=== PATIENT | female | born 1985 | race Caucasian/White ===

== ENCOUNTER 2020-12-08 12:54 | Outpatient (REF) | payer BC, SELFPAY ==
--- NOTE | ~2020-12-08 | XR_ITS ---
EXAMINATION: XR ELBOW, RIGHT CLINICAL INFORMATION: Pain COMPARISON: None TECHNIQUE: AP, lateral, and oblique views of the right elbow. FINDINGS: No fracture or joint effusion. Alignment is anatomic. Joint spaces are maintained. No abnormal soft tissue calcification. XR/XR elbow RT min 3V IMPRESSION: No radiographic evidence of acute fracture.
== END 2020-12-08 12:55 | disposition home or self-care (01) ==
LOC: HO.HMGCX 12:54
PROVIDERS: Visit Provider Hospitalist
DX: M25.521 Pain in right elbow (principal)
CPT/HCPCS: 73080

== ENCOUNTER 2022-08-31 16:40 | Emergency (ER) | payer OTHER, SELFPAY ==
--- NOTE | ~2022-08-31 | XR_ITS ---
EXAMINATION: XR CHEST CLINICAL INFORMATION: Shortness of breath and cough COMPARISON: None TECHNIQUE: Frontal view of the chest was obtained. FINDINGS: The lungs are clear. No airspace consolidation, pleural effusion, or pneumothorax. The cardiomediastinal silhouette is within normal limits. No acute osseous injury. Spinal stimulator leads project over the thoracic spine at the T7 and T8 level. XR/XR chest 1V IMPRESSION: No acute pulmonary process.
[2022-08-31 16:54] VITALS: BP 138/96; PULSE 96; RESP 22; TEMP 36.8; O2SAT 100; BMI 42.3
--- NOTE | 2022-08-31 17:43 | ED.URI ---
HPI - URI/Sore Throat General Chief Complaint: Upper Respiratory Symptoms Stated Complaint: SOB, asthma Time Seen by Provider: 08/31/22 17:08 Source: patient Mode of arrival: ambulatory Limitations: no limitations History of Present Illness HPI Narrative: Patient is a 37-year-old female with a past medical history of asthma who presents to the emergency department today for evaluation of a productive cough in ongoing shortness of breath. Symptoms with onset approximately 3 weeks ago. Five days ago she was seen by her primary care provider, she was started on oral steroids, she has not had much improvement in her symptoms. She feels as though her symptoms are getting worse. Shortness of breath upon exertion, productive cough with green/brown mucus, intermittent low-grade fevers up to 101, sinus congestion, right sided facial tenderness. She has had some recent close contact with ill persons. Denies any chest pain or palpitations. Denies nausea vomiting or abdominal pain Related Data Home Medications Medication Instructions Recorded Confirmed acetaminophen [Tylenol 8 Hour] PO 12/08/20 12/08/20 Previous Rx's Medication Instructions Recorded prednisone 20 mg tablet 20 mg PO .COMPLEX #18 tabs 12/08/20 Allergies Allergy/AdvReac Type Severity Reaction Status Date / Time morphine Allergy Unknown unknown Verified 08/31/22 16:54 Review of Systems Review of Systems: Constitutional: Positive fever. No chills. No weakness. Positive fatigue. ENT/ Mouth: No Ear Pain, positive Nasal Congestion, no sore throat, No Rhinorrhea, No Swallowing Difficulty Skin: No rash or itching. Cardiovascular: No chest pain. No palpitations. Respiratory: Positive shortness of breath. Positive cough. Positive sputum production. Gastrointestinal: No nausea. No vomiting. No diarrhea. No abdominal pain. Genitourinary: No burning micturition. No urinary frequency. Neurologic: No headache. No dizziness. No syncope. No numbness or tingling in the extremities. Musculoskeletal: No muscle pain. No back pain. No joint pain or stiffness. Yes all other systems are reviewed and are negative [facility] Past Medical History Attestation statement: The following information was validated with the patient. Source: old records reviewed Social History Social History Advance Directives: No Advance Directives Information Provided: No Physical Exam Vital Signs: Vital Signs: Last Vital Signs Temp 98.3 F 08/31/22 16:54 Pulse 96 08/31/22 16:54 Resp 22 H 08/31/22 16:54 BP 138/96 H 08/31/22 16:54 Pulse Ox 100 08/31/22 16:54 O2 Del Method 08/31/22 16:54 BMI result Body Mass Index 42.3 Appearance: Alert.?Oriented to person, place and time. No acute distress.?Normal affect. Eyes: Pupils equal, round and reactive to light.? ENT: TM normal bilaterally. Pharynx normal.?? Neck: Normal inspection.? Neck supple.??No cervical adenopathy CVS: Heart sounds normal. Normal heart rate and rhythm.? Pulses normal.?? Respiratory: No respiratory distress.? Lung sounds with mild rhonchi bilaterally, no wheezing. Abdomen: Soft and non-tender. Normoactive bowel sounds. Skin: Skin warm and dry.? Normal skin color.? ? Extremities: No lower extremity edema.? Neuro: Moves all extremities spontaneously. Sensation intact bilaterally. No motor deficits. Ambulates with normal steady gait. Course Course Course Narrative: Patient is a 37-year-old female with past medical history of asthma, presenting for evaluation of upper respiratory symptoms. COVID-19 testing positive. Influenza testing negative. Chest x-ray reveals no acute cardiopulmonary process. At this time history and physical exam not consistent with ACS/PE/pneumonia. PERc negative, nontoxic, afebrile, no tachycardia or tachypnea/hypoxia. Speaking clear full sentences, ambulatory with steady gait. symptoms most consistent with bronchitis secondary to recent viral infection. PRN albuterol to be used as needed. Declines Paxlovid at this time. Discussed conservative treatment including rest, hydration, Tylenol/ibuprofen as needed for fever and body aches, saline nasal spray, humidifier, [id number] cold medication. Advised to follow-up with primary care provider as needed, discussed reasons to return back to the emergency department. All questions were answered. Patient discharged home in stable condition. MDM - URI/Sore Throat Medical Records Attestation: I reviewed the patient's medical records. Lab Data Attestation: I reviewed the patient's lab results. Labs: Lab Results 08/31/22 Range/Units 17:06 Influenza Type A (PCR) NEGATIVE (Negative) Influenza Type B (PCR) NEGATIVE (Negative) RSV RNA Qual (PCR) NEGATIVE (Negative) SARS-CoV-2 RNA (RT-PCR) POSITIVE A (Negative) Imaging Data Chest x-ray: Radiologist's impression: XR/XR chest 1V IMPRESSION: No acute pulmonary process. ? Discharge Plan Discharge Clinical Impression: COVID-19, Bronchitis Patient Disposition: Home, Self-Care Instructions: Acute Bronchitis (ED), COVID-19 (Coronavirus Disease 2019) (ED) Additional Instructions: Be sure to rest, stay well hydrated drinking plenty of fluids, eat small frequent meals. Tylenol/ibuprofen can be used as needed for fever/pain. Aqoj-zey-bexauht cold medications may be helpful as well for symptoms. Saline nasal spray, humidifier may be helpful for nasal congestion. You may return to the emergency department with any new or worsening symptoms or concerns. Follow-up with your primary care provider as needed. Should remain out of school/ work until symptoms have resolved and have been without a fever for 24 hours without the use of Tylenol or ibuprofen. Prescriptions: No Action acetaminophen PO Rx Instructions: three twice daily prednisone 20 mg tablet 20 mg PO .COMPLEX Qty: 18 0RF Rx Instructions: 20 mg PO 3 p.o. daily for 3 days followed by 2 p.o. daily for 3 days followed by 1 p.o. daily for 3 days; Referrals: Physician,Nonstaff [Primary Care Provider] -
[2022-08-31 17:53] LABS: Influenza A PCR NEGATIVE (Negative); Influenza B PCR NEGATIVE (Negative); Resp Syncy Virus RNA Qual PCR NEGATIVE (Negative); SARS COV2 PCR INHOUSE POSITIVE (Negative)
== END 2022-08-31 19:01 | disposition home or self-care (01) ==
PROVIDERS: Emergency Provider Student in an Organized Health Care Education/Training Program
DX: U07.1 COVID-19 (principal); J40 Bronchitis, not specified as acute or chronic
CPT/HCPCS: 0241U; 71045; 99282; 99283